=== PATIENT | male | born 1970 | race Caucasian/White ===

== ENCOUNTER 2019-01-24 18:14 | Inpatient (IN) ==
[2019-01-24] MEDS ORDERED: Ringers Solution, Lactated 1,000 ML IVC SCH (22:00)
[2019-01-24] MEDS ORDERED: Ringers Solution, Lactated 1,000 ML IVC ONE (22:07)
[2019-01-24] MEDS ORDERED: Lactulose Oral Soln 20 GM/30 ML UDC PO SCH (22:08)
[2019-01-24] MEDS ORDERED: Ipratropium/Albuterol Neb 3 ML IH PRN (23:06)
[2019-01-24] MEDS: Pantoprazole 40 MG in 0.9 % Sodium Chloride Mini Bag 100 ML IVC SCH (23:27)
[2019-01-24 23:56] LABS: INR 1.3; Prothrombin Time 14.5 Seconds (9.4-12.1)
[2019-01-24 23:58] LABS: Activated Partial Thrombo Time 29.6 Seconds (26.0-36.0)
[2019-01-25 00:07] LABS: VBG HCO3 16 mEq/L (21-27); VBG PCO2 27 mmHg (41-51); VBG PH 7.37 pH Units (7.32-7.42); VBG PO2 113 mmHg (25-50)
[2019-01-25 00:21] LABS: Basophils # 0.1 K/mcL (0.0-0.2); Basophils % 1.1 %; Eosinophils # 0.6 K/mcL (0.0-0.6); Eosinophils % 13.2 %; Hematocrit 19.3 % (37.5-50.1); Hemoglobin 6.2 g/dL (12.9-16.9); Immature Granulocytes % 0.4 % (0-4); Lymphocytes # 1.2 K/mcL (0.6-4.6); Lymphocytes % 24.6 %; Mean Corpuscular HGB Conc 32.1 g/dL (31.6-35.5); Mean Corpuscular Hemoglobin 27.4 pg (28.0-33.3); Mean Corpuscular Volume 85.4 fL (83.0-100.0); Mean Platelet Volume 10.2 fL (9.4-12.4); Monocytes # 0.4 K/mcL (0.0-1.3); Monocytes % 7.6 %; Neutrophils # 2.5 K/mcL (1.6-8.9); Platelet Count 267 K/mcL (140-400); Red Blood Count 2.26 M/mcL (4.19-5.50); Red Cell Distribution Width 19.9 % (11.5-14.5); Segmented Neutrophils % 53.1 %; White Blood Count 4.8 K/mcL (4.3-11.1)
[2019-01-25 01:00] LABS: Alanine Aminotransferase 24 Units/L (7-52); Albumin 3.6 g/dL (3.5-5.7); Albumin/Globulin Ratio 0.9 (1.1-2.2); Alkaline Phosphatase 136 Units/L (34-104); Aspartate Amino Transferase 49 Units/L (13-39); BUN/Creatinine Ratio 38 (6-26); Bilirubin,Direct 0.5 mg/dL (0.0-0.2); Bilirubin,Indirect 0.6 mg/dL (0.0-1.0); Bilirubin,Total 1.1 mg/dL (0.3-1.0); Blood Urea Nitrogen 44 mg/dL (6-20); Carbon Dioxide 14 mEq/L (23-29); Chloride 121 mEq/L (98-107); Globulin 3.9 g/dL (2.4-3.5); Glucose 106 mg/dL (70-105); Magnesium 1.7 mg/dL (1.6-2.6); Osmolality,Calculated 312 (280-300); Phosphorous 3.4 mg/dL (2.7-4.5); Potassium 4.3 mEq/L (3.5-5.1); Sodium 145 mEq/L (136-145); Total Protein 7.5 g/dL (6.4-8.9); eGFR For African Americans > 60 (> 60); eGFR For Non-African Americans > 60 (> 60)
[2019-01-25] MEDS: Lactulose Oral Soln 20 GM/30 ML UDC PO SCH ×8 (01:55→20:08)
[2019-01-25] MEDS ORDERED: Haloperidol Lactate 5 MG/ML VIAL IVP ONE (03:00)
[2019-01-25] MEDS: Pantoprazole 40 MG in 0.9 % Sodium Chloride Mini Bag 100 ML IVC SCH ×2 (04:43→09:44)
[2019-01-25] MEDS ORDERED: Ondansetron 4 MG/2 ML VIAL IVP PRN (07:39)
[2019-01-25 09:05] LABS: Hemoglobin 6.7 g/dL (12.9-16.9)
[2019-01-25] MEDS ORDERED: 0.9 % Sodium Chloride 250 ML ONE (10:34)
[2019-01-25] MEDS: Pantoprazole 40 MG VIAL IVP SCH (18:51)
[2019-01-25] MEDS: levETIRAcetam 250 MG TABLET PO SCH (20:07)
[2019-01-25 23:46] LABS: Hematocrit 28.1 % (37.5-50.1); Hemoglobin 9.6 g/dL (12.9-16.9)
[2019-01-26 00:36] LABS: Basophils # 0.1 K/mcL (0.0-0.2); Basophils % 1.5 %; Eosinophils # 0.7 K/mcL (0.0-0.6); Eosinophils % 13.3 %; Hematocrit 28.6 % (37.5-50.1); Hemoglobin 9.6 g/dL (12.9-16.9); Immature Granulocytes % 0.4 % (0-4); Lymphocytes # 1.1 K/mcL (0.6-4.6); Lymphocytes % 21.2 %; Mean Corpuscular HGB Conc 33.6 g/dL (31.6-35.5); Mean Corpuscular Hemoglobin 28.3 pg (28.0-33.3); Mean Corpuscular Volume 84.4 fL (83.0-100.0); Mean Platelet Volume 9.8 fL (9.4-12.4); Monocytes # 0.7 K/mcL (0.0-1.3); Monocytes % 12.2 %; Neutrophils # 2.7 K/mcL (1.6-8.9); Platelet Count 205 K/mcL (140-400); Red Blood Count 3.39 M/mcL (4.19-5.50); Red Cell Distribution Width 17.6 % (11.5-14.5); Segmented Neutrophils % 51.4 %; White Blood Count 5.3 K/mcL (4.3-11.1)
[2019-01-26 00:55] LABS: BUN/Creatinine Ratio 25 (6-26); Blood Urea Nitrogen 24 mg/dL (6-20); Calcium 9.1 mg/dL (8.6-10.3); Carbon Dioxide 15 mEq/L (23-29); Chloride 120 mEq/L (98-107); Glucose 133 mg/dL (70-105); Magnesium 1.7 mg/dL (1.6-2.6); Osmolality,Calculated 302 (280-300); Potassium 3.5 mEq/L (3.5-5.1); Sodium 143 mEq/L (136-145); eGFR For African Americans > 60 (> 60); eGFR For Non-African Americans > 60 (> 60)
[2019-01-26] MEDS ORDERED: GI Cocktail 40 ML EACH PO ONE (03:06)
[2019-01-26] MEDS: Pantoprazole 40 MG VIAL IVP SCH ×2 (04:53→18:20)
[2019-01-26] MEDS: Folic Acid 1 MG TABLET PO SCH (08:36)
[2019-01-26] MEDS: Multivit/Ca/Min/Fe/FA 1 TAB TABLET PO SCH (08:36)
[2019-01-26] MEDS: Aspirin Enteric Coated 81 MG Tablet PO SCH (08:36)
[2019-01-26] MEDS: levETIRAcetam 250 MG TABLET PO SCH ×2 (08:36→21:02)
[2019-01-26] MEDS: Nicotine 21 MG PATCH.TD24 TD SCH (08:37)
[2019-01-26] MEDS: Lactulose Oral Soln 20 GM/30 ML UDC PO SCH (08:37)
[2019-01-27 05:04] LABS: Basophils # 0.1 K/mcL (0.0-0.2); Basophils % 1.7 %; Eosinophils # 0.9 K/mcL (0.0-0.6); Eosinophils % 16.3 %; Hematocrit 28.2 % (37.5-50.1); Hemoglobin 9.2 g/dL (12.9-16.9); Immature Granulocytes % 0.2 % (0-4); Lymphocytes # 1.1 K/mcL (0.6-4.6); Lymphocytes % 21.5 %; Mean Corpuscular HGB Conc 32.6 g/dL (31.6-35.5); Mean Corpuscular Hemoglobin 28.8 pg (28.0-33.3); Mean Corpuscular Volume 88.4 fL (83.0-100.0); Mean Platelet Volume 9.9 fL (9.4-12.4); Monocytes # 0.6 K/mcL (0.0-1.3); Neutrophils # 2.6 K/mcL (1.6-8.9); Platelet Count 183 K/mcL (140-400); Red Blood Count 3.19 M/mcL (4.19-5.50); Red Cell Distribution Width 18.4 % (11.5-14.5); Segmented Neutrophils % 49.3 %; White Blood Count 5.2 K/mcL (4.3-11.1)
[2019-01-27 05:27] LABS: BUN/Creatinine Ratio 17 (6-26); Blood Urea Nitrogen 13 mg/dL (6-20); Carbon Dioxide 17 mEq/L (23-29); Chloride 111 mEq/L (98-107); Glucose 97 mg/dL (70-105); Magnesium 1.6 mg/dL (1.6-2.6); Osmolality,Calculated 284 (280-300); Potassium 3.4 mEq/L (3.5-5.1); Sodium 137 mEq/L (136-145); eGFR For African Americans > 60 (> 60); eGFR For Non-African Americans > 60 (> 60)
[2019-01-27] MEDS: Pantoprazole 40 MG VIAL IVP SCH ×2 (06:05→16:28)
[2019-01-27] MEDS ORDERED: Potassium Chloride 20 MEQ, Lidocaine 1% 2 ML in 0.9 % Sodium Chloride 250 ML IVPB ONE (07:46)
[2019-01-27] MEDS: levETIRAcetam 250 MG TABLET PO SCH ×2 (07:58→22:00)
[2019-01-27] MEDS: Aspirin Enteric Coated 81 MG Tablet PO SCH (07:58)
[2019-01-27] MEDS: Folic Acid 1 MG TABLET PO SCH (07:58)
[2019-01-27] MEDS: Multivit/Ca/Min/Fe/FA 1 TAB TABLET PO SCH (07:58)
[2019-01-27] MEDS: Nicotine 21 MG PATCH.TD24 TD SCH (07:59)
[2019-01-27] MEDS: Spironolactone 25 MG TABLET PO SCH (07:59)
[2019-01-27] MEDS ORDERED: *HR* Propofol 200 MG/20 ML VIAL IVP ONE (13:15)
[2019-01-28 03:48] LABS: Basophils # 0.1 K/mcL (0.0-0.2); Basophils % 1.4 %; Eosinophils # 1.3 K/mcL (0.0-0.6); Eosinophils % 18.1 %; Hemoglobin 9.2 g/dL (12.9-16.9); Immature Granulocytes % 0.1 % (0-4); Lymphocytes # 1.1 K/mcL (0.6-4.6); Lymphocytes % 15.9 %; Mean Corpuscular HGB Conc 31.7 g/dL (31.6-35.5); Mean Corpuscular Hemoglobin 28.8 pg (28.0-33.3); Mean Corpuscular Volume 90.6 fL (83.0-100.0); Mean Platelet Volume 9.7 fL (9.4-12.4); Monocytes # 0.7 K/mcL (0.0-1.3); Monocytes % 9.8 %; Neutrophils # 3.8 K/mcL (1.6-8.9); Platelet Count 186 K/mcL (140-400); Red Cell Distribution Width 18.5 % (11.5-14.5); Segmented Neutrophils % 54.7 %
[2019-01-28 04:26] LABS: BUN/Creatinine Ratio 11 (6-26); Blood Urea Nitrogen 9 mg/dL (6-20); Calcium 8.1 mg/dL (8.6-10.3); Carbon Dioxide 12 mEq/L (23-29); Chloride 111 mEq/L (98-107); Glucose 113 mg/dL (70-105); Magnesium 1.6 mg/dL (1.6-2.6); Osmolality,Calculated 279 (280-300); Sodium 135 mEq/L (136-145); eGFR For African Americans > 60 (> 60); eGFR For Non-African Americans > 60 (> 60)
[2019-01-28] MEDS: Pantoprazole 40 MG VIAL IVP SCH ×2 (05:35→18:00)
[2019-01-28] MEDS: Lactulose Oral Soln 20 GM/30 ML UDC PO PRN (05:37)
[2019-01-28] MEDS: Spironolactone 25 MG TABLET PO SCH (10:00)
[2019-01-28] MEDS: levETIRAcetam 250 MG TABLET PO SCH ×2 (10:00→21:00)
[2019-01-28] MEDS: Multivit/Ca/Min/Fe/FA 1 TAB TABLET PO SCH (10:00)
[2019-01-28] MEDS: Aspirin Enteric Coated 81 MG Tablet PO SCH (10:00)
[2019-01-28] MEDS: Folic Acid 1 MG TABLET PO SCH (10:00)
[2019-01-28] MEDS: Nicotine 21 MG PATCH.TD24 TD SCH (10:05)
[2019-01-29 06:19] LABS: Basophils # 0.1 K/mcL (0.0-0.2); Basophils % 1.3 %; Eosinophils # 1.5 K/mcL (0.0-0.6); Eosinophils % 20.9 %; Hemoglobin 8.8 g/dL (12.9-16.9); Immature Granulocytes % 0.1 % (0-4); Lymphocytes # 1.3 K/mcL (0.6-4.6); Mean Corpuscular HGB Conc 32.6 g/dL (31.6-35.5); Mean Corpuscular Volume 89.1 fL (83.0-100.0); Mean Platelet Volume 10.1 fL (9.4-12.4); Monocytes # 0.9 K/mcL (0.0-1.3); Neutrophils # 3.4 K/mcL (1.6-8.9); Platelet Count 204 K/mcL (140-400); Red Blood Count 3.03 M/mcL (4.19-5.50); Red Cell Distribution Width 19.3 % (11.5-14.5); Segmented Neutrophils % 47.7 %; White Blood Count 7.2 K/mcL (4.3-11.1)
[2019-01-29] MEDS: Pantoprazole 40 MG VIAL IVP SCH ×2 (06:38→18:37)
[2019-01-29 06:42] LABS: BUN/Creatinine Ratio 9 (6-26); Blood Urea Nitrogen 8 mg/dL (6-20); Carbon Dioxide 20 mEq/L (23-29); Chloride 108 mEq/L (98-107); Glucose 141 mg/dL (70-105); Magnesium 1.6 mg/dL (1.6-2.6); Osmolality,Calculated 285 (280-300); Platelet Estimate Normal (Normal); Potassium 3.8 mEq/L (3.5-5.1); Sodium 137 mEq/L (136-145); eGFR For African Americans > 60 (> 60); eGFR For Non-African Americans > 60 (> 60)
[2019-01-29 06:43] LABS: Anisocytosis 1+ (Not Present)
[2019-01-29] MEDS: Spironolactone 25 MG TABLET PO SCH (08:14)
[2019-01-29] MEDS: Folic Acid 1 MG TABLET PO SCH (08:14)
[2019-01-29] MEDS: levETIRAcetam 250 MG TABLET PO SCH ×2 (08:14→20:52)
[2019-01-29] MEDS: Aspirin Enteric Coated 81 MG Tablet PO SCH (08:14)
[2019-01-29] MEDS: Multivit/Ca/Min/Fe/FA 1 TAB TABLET PO SCH (08:14)
[2019-01-29] MEDS: Nicotine 21 MG PATCH.TD24 TD SCH (08:23)
[2019-01-29] MEDS: Lactulose Oral Soln 20 GM/30 ML UDC PO PRN (20:51)
[2019-01-30 06:19] LABS: Hematocrit 26.2 % (37.5-50.1); Hemoglobin 8.4 g/dL (12.9-16.9); Mean Corpuscular HGB Conc 32.1 g/dL (31.6-35.5); Mean Corpuscular Hemoglobin 28.5 pg (28.0-33.3); Mean Corpuscular Volume 88.8 fL (83.0-100.0); Mean Platelet Volume 9.5 fL (9.4-12.4); Platelet Count 191 K/mcL (140-400); Red Blood Count 2.95 M/mcL (4.19-5.50); Red Cell Distribution Width 19.4 % (11.5-14.5); White Blood Count 6.9 K/mcL (4.3-11.1)
[2019-01-30 06:35] LABS: BUN/Creatinine Ratio 15 (6-26); Blood Urea Nitrogen 12 mg/dL (6-20); Calcium 8.4 mg/dL (8.6-10.3); Carbon Dioxide 20 mEq/L (23-29); Chloride 111 mEq/L (98-107); Glucose 122 mg/dL (70-105); Osmolality,Calculated 283 (280-300); Potassium 4.1 mEq/L (3.5-5.1); Sodium 136 mEq/L (136-145); eGFR For African Americans > 60 (> 60); eGFR For Non-African Americans > 60 (> 60)
[2019-01-30] MEDS: Lactulose Oral Soln 20 GM/30 ML UDC PO SCH ×2 (08:35→10:48)
[2019-01-30] MEDS: Nicotine 21 MG PATCH.TD24 TD SCH (08:36)
[2019-01-30] MEDS: levETIRAcetam 250 MG TABLET PO SCH (08:36)
[2019-01-30] MEDS: Spironolactone 25 MG TABLET PO SCH (08:37)
[2019-01-30] MEDS: Folic Acid 1 MG TABLET PO SCH (08:37)
[2019-01-30] MEDS: Multivit/Ca/Min/Fe/FA 1 TAB TABLET PO SCH (08:38)
[2019-01-30] MEDS: Aspirin Enteric Coated 81 MG Tablet PO SCH (08:39)
[2019-01-30] MEDS: Pantoprazole 40 MG VIAL IVP SCH (08:49)
[2019-01-30 11:37] VITALS: BP 116/62
== END 2019-01-30 13:19 | DRG 280 ==
LOC: 2NNU → SUATTDRO 22:12 → 2NNU 01-25 12:36
PROVIDERS: ADMIT Internal Medicine; ATTEND Internal Medicine